=== PATIENT | female | born 1945 | race African-American/Black ===

== ENCOUNTER 2019-07-31 14:21 | Outpatient (CLI) | payer MEDICARE, SELFPAY ==
--- NOTE | ~2019-07-31 | MM_ITS ---
EXAMINATION: MM screening [facility] BI w nadine HISTORY: Screening mammogram TECHNIQUE: Craniocaudal and mediolateral oblique 3-D tomosynthesis images were obtained and synthetic 2-D images were generated. CAD analysis was submitted and interpreted. COMPARISON: 02/15/2018, 07/08/2016 bilateral digital screening mammogram examinations BREAST PARENCHYMAL COMPOSITION: There are scattered areas of fibroglandular density. FINDINGS: There is no evidence of suspicious mass, calcification, or architectural distortion to sugg est malignancy in either breast. There has been no suspicious interval change. IMPRESSION: 1. No mammographic evidence of malignancy. 2. Recommend routine screening mammography in one year. BI-RADS Category 1: Negative Reviewed, dictated and finalized at location A.
== END 2019-07-31 14:22 | disposition home or self-care (01) ==
LOC: ANHIMG 14:25
PROVIDERS: Visit Provider Family Medicine
DX: Z12.31 Encounter for screening mammogram for malignant neoplasm of breast (principal)
CPT/HCPCS: 77063; 77067

== ENCOUNTER → 2019-09-17 14:56 | Outpatient (CLI) | payer MEDICARE, SELFPAY ==
--- NOTE | ~2019-09-17 | XR_ITS ---
XR chest 2V 09/17/2019 15:12 Indication: Cough Procedure: 2 view chest Comparison: Comparison to multiple prior studies sequentially, with oldest reviewed study dated 10/11. Findings: Cardiomegaly. No focal air space disease, pulmonary edema, pleural effusion or suspected pn eumothorax. No acute osseous abnormality. Impression: 1: No acute cardiopulmonary disease. Reviewed, dictated and finalized at location A. Impression: 1: No acute cardiopulmonary disease.
== END ==
PROVIDERS: PCP Family Medicine; Visit Provider Internal Medicine Nephrology
DX: R05 Cough (principal)
CPT/HCPCS: 71046

== ENCOUNTER 2020-10-15 15:46 | Outpatient (CLI) | payer MEDICARE, SELFPAY ==
--- NOTE | ~2020-10-15 | MM_ITS ---
EXAMINATION: MM screening ladarius BI w nadine HISTORY: Screening TECHNIQUE: Craniocaudal and mediolateral oblique 3-D tomosynthesis images were obtained and synthetic 2-D images were generated. CAD analysis was submitted and interpreted. COMPARISON: Comparison to multiple prior studies sequentially, with oldest reviewed study dated 07/08. BREAST PARENCHYMAL COMPOSITION: There are scattered areas of fibroglandular density. FINDINGS: There is no evidence of suspicious mass, calcification, or architectural distortion to sugg est malignancy in either breast. There has been no suspicious interval change. IMPRESSION: 1. No mammographic evidence of malignancy. 2. Recommend routine screening mammography in one year. BI-RADS Category 1: Negative Reviewed, dictated and finalized at location A.
== END 2020-10-15 15:47 | disposition home or self-care (01) ==
PROVIDERS: PCP Family Medicine; Visit Provider Family Medicine
DX: Z12.31 Encounter for screening mammogram for malignant neoplasm of breast (principal)
CPT/HCPCS: 77063; 77067

== ENCOUNTER 2021-06-07 18:11 | Emergency (ER) | payer MEDICARE, SELFPAY ==
[2021-06-07 18:20] VITALS: BP 140/78; PULSE 83; RESP 16; TEMP 36.9; O2SAT 100
[2021-06-07 18:22] VITALS: BP 140/78; PULSE 83; RESP 16; TEMP 36.9; O2SAT 100
--- NOTE | 2021-06-07 18:52 | ED.LOWEXIN ---
HPI - Extremity Injury (Lower) General Chief Complaint: Extremity Injury, Lower Stated Complaint: left leg pain Time Seen by Provider: 06/07/21 18:30 Source: patient, family and RN notes reviewed Mode of arrival: ambulatory Limitations: no limitations History of Present Illness HPI Narrative: Patient presents today complaining of left lower leg pain x1 week. States the pain is progressively getting worse. Reports that the pain started out only at night and is now currently worse at night, but is hurting during the day as well. Denies swelling, redness, bruising, numbness or tingling. She currently rates her pain 7/10 and has been taking Tylenol with only mild relief. She is a peritoneal dialysis patient. Denies any injury or trauma. MD complaint: other (Lower leg pain) Related Data Home Medications Medication Instructions Recorded Confirmed B complex-vitamin C-folic acid tablet 06/07/21 [Lizzie-Vernell] allopurinol 06/07/21 atorvastatin 06/07/21 azithromycin 06/07/21 06/07/21 carvedilol 06/07/21 hydralazine 06/07/21 irbesartan mg 06/07/21 levothyroxine 06/07/21 montelukast mg 06/07/21 pantoprazole PO 06/07/21 sevelamer carbonate 06/07/21 Allergies Allergy/AdvReac Type Severity Reaction Status Date / Time Penicillins Allergy Severe UNKNOWN Verified 12/29/16 18:00 WAS CHILD tetracycline Allergy Mild MAKES ME Verified 12/29/16 18:00 SICKER cephalexin Allergy Unknown HIVES Verified 12/29/16 18:00 latex Allergy Unknown RASH-GLOVES Verified 12/29/16 18:00 Iodinated Contrast- Oral and Allergy Unknown Uncoded 01/03/17 10:31 IV Dye Contrast Media AdvReac Unknown N/V Uncoded 12/29/16 18:00 Review of Systems Review of Systems: CONSTITUTIONAL: Denies body aches, fever, chills, or sweats. EYES: Denies visual changes, redness, or discharge. ENT: Denies rhinorrhea, congestion, sore throat, or otalgia. CARDIOVASCULAR: Denies chest pain, palpitations, or edema. RESPIRATORY: Denies cough or dyspnea. GASTROINTESTINAL: Denies abdominal pain, nausea, vomiting, or diarrhea. GENITOURINARY: Denies dysuria or hematuria. SKIN: Denies rash, itching, or wounds. MUSCULOSKELETAL: Denies back pain, joint pain. + Left leg pain NEUROLOGIC: Denies headache, numbness, tingling, or weakness. PSYCH: Denies depression or anxiety. [facility] Past Medical History Medical History (Updated 06/07/21 @ 19:36 by Joyce Triana, [facility], ) GERD (gastroesophageal reflux disease) High cholesterol History of gout Hypothyroidism Peritoneal dialysis catheter in place Comments At time of signature, I have reviewed and agree with nursing past medical, surgical, social and family history unless otherwise noted. Please see nursing chart for further information. There is no relevant family history pertinent to the presenting complaint Exam Narrative: GENERAL: Well-appearing, well-nourished, and in no acute distress. HEAD: Normocephalic, atraumatic. EYES: EOMI. No redness or drainage. ENT: Mucous membranes pink and moist. NECK: Normal AROM. CHEST: No respiratory distress. EXTREMITIES: Left lower leg: Tenderness to the anterolateral portion of the leg, even with light touch. There is no swelling, redness, ecchymosis, or any other abnormalities noted to the leg. Distal sensation intact. Capillary refill normal. Pedal pulse is strong. -Homans. No calf pain with palpation. No pain to the affected area with movement of the ankle or knee. No swelling of the ankle or foot. SKIN: Warm, dry, no rash. Capillary refill normal. Normal skin turgor. NEURO: No focal deficits. Alert and oriented x3. Gait steady. PSYCH: Normal affect. No signs of depression or anxiety. Course Course Emergency Course: Discussed with patient and family limitations of urgent care evaluation. Patient would like to call her PCP in the morning discuss outpatient ultrasound. States she is having significant pain, especially at night when she is try
== END 2021-06-07 19:09 | disposition home or self-care (01) ==
PROVIDERS: Emergency Provider Nurse Practitioner; PCP Family Medicine
DX: M79.662 Pain in left lower leg (principal); K21.9 Gastro-esophageal reflux disease without esophagitis; E78.00 Pure hypercholesterolemia, unspecified; M11.09 Hydroxyapatite deposition disease, multiple sites; E03.9 Hypothyroidism, unspecified; Z99.2 Dependence on renal dialysis
CPT/HCPCS: 99213; G0463